=== PATIENT | female | born 1945 | race Caucasian/White ===

== ENCOUNTER 2020-09-13 13:10 | Emergency (ER) | payer MEDICARE, BC ==
[~2020-09-13] VITALS: Ht 157.5 cm; Wt 94.5 kg
[~2020-09-13 13:10] MED LIST: ALBU8.5H8 INH; BENA10TA74 PO; CA C1TAB86 PO; CHOL200041 PO; CINN500C15 PO; ENZY1CAP5 PO; HYDR-3964 PO; INSU100C4 SQ; INSU100V9 SQ; ISOS120T13 PO; LIRA0.6P2 SUBCUT; METO-395 PO; MILK1CAP3 PO; NITR0.4T51 SL; NYSPWD TP; QUELT PO; SIMV10TA2 PO; TURM538C PO
[2020-09-13] MEDS ORDERED: acetaminophen 325mg tablet PO ONE (17:40)
[2020-09-13 17:51] VITALS: BP 165/73
[2020-09-13] MEDS ORDERED: LIDOcaine 5% patch TP ONE (18:45)
[2020-09-13] MEDS ORDERED: HYDR-3965 PO (18:49)
[2020-09-13] MEDS ORDERED: LIDO700A32 TOP (18:49)
== END 2020-09-13 19:00 | disposition home or self-care (01) ==
LOC: ER 13:11
DX: R07.81 Pleurodynia (principal); M79.602 Pain in left arm; M25.512 Pain in left shoulder; I25.10 Atherosclerotic heart disease of native coronary artery without angina pectoris; I10 Essential (primary) hypertension; E11.9 Type 2 diabetes mellitus without complications; Z86.73 Personal history of transient ischemic attack (TIA), and cerebral infarction without residual deficits; Z88.2 Allergy status to sulfonamides; Z79.2 Long term (current) use of antibiotics; Z79.4 Long term (current) use of insulin; Z79.899 Other long term (current) drug therapy
CPT/HCPCS: 71046; 73060; 99284